=== PATIENT | male | born 1950 | race Caucasian/White ===

== ENCOUNTER → 2018-01-28 10:02 | Outpatient (CLI) | payer MEDICARE, SELFPAY ==
[2018-01-28 11:55] LABS: Prostate Specific Antigen 0.181 ng/mL (0.10-4.00)
== END ==
PROVIDERS: PCP Nurse Practitioner Family; Visit Provider Urology
DX: C61 Malignant neoplasm of prostate (principal)
CPT/HCPCS: 36415; 84153

== ENCOUNTER → 2018-05-06 12:27 | Outpatient (CLI) | payer MEDICARE, SELFPAY ==
[2018-05-06 13:33] LABS: Prostate Specific Antigen 0.159 ng/mL (0.10-4.00)
== END ==
PROVIDERS: PCP Nurse Practitioner Family; Visit Provider Urology
DX: C61 Malignant neoplasm of prostate (principal)
CPT/HCPCS: 36415; 84153

== ENCOUNTER 2018-06-12 10:57 | Day surgery (SDC) | payer MEDICARE, SELFPAY ==
[2018-05-14 11:43] VITALS: BMI 27.3
[2018-06-12] VITALS (8 sets, daily range): BP systolic 116–140; BP diastolic 78–91; PULSE 64–80; RESP 10–18; TEMP 36.3–37.3; O2SAT 89–100; BMI 26.5
--- NOTE | 2018-06-12 | PATH_ITS ---
[facility] Accession Number: [id number] . 01 Material submitted: . foot - SUB 4TH METATARSAL PLANTAR LESION . 01 Clinical history: . PLANTAR LESION SUB 4TH METATARSAL, SUTURE ON DISTAL ASPECT . 01 Diagnosis: Plantar Sub-Fourth Metatarsal, Excision: Consistent with traumatized angioleiomyoma. . Note: Verrucous epidermal changes are noted on the surface. Smooth muscle actin and CD34 immunostains performed support the above diagnosis. MRV/06/16/2018 . 01 Electronically signed: . Joelle Garcia MD, Dermatopathologist NPI- [id number] . 01 Gross description: . Received in formalin, labeled with the patient's name and plantar lesion sub fourth metatarsal, is an ovoid benitez-white skin excision oriented with a suture on the distal aspect. The suture is designated 12 o'clock. The specimen measures 1.6 cm 12 o'clock to 6 o'clock by 1.2 cm 3 o'clock to 9 o'clock, and is excised to a depth of 0.9 cm. A 1.1 x 0.7 cm nodular benitez-white lesion is present on the skin surface and is 0.1 cm from all resection margins. The specimen is inked as follows: 12 o'clock to 3 'clock-blue; 3 o'clock to 6 o'clock-yellow; 6 o'clock to 12 o'clock-green; deep-black. The specimen is serially sectioned to reveal a benitez-white to benitez-yellow cut surface, and entirely submitted as follows: A1-12 o'clock tip, shaved; A2-6 o'clock tip, shaved; A3-A4 - remainder of specimen, serially sectioned. (BRITTNY:[id number]) /MRV . 01 Pathologist provided ICD-10: D23.9 . 01 CPT . 078274, [id number], [id number] Performed at: [address] [id number] MD Arash Gay MD Phone: [phone]
--- NOTE | 2018-06-12 13:23 | PM.PREOP ---
Pre-operative Note Interval Note History & Physical reviewed/Exam performed by Physician: Yes Changes to H&P: No
--- NOTE | 2018-06-12 13:25 | P.OP_ITS ---
Operative Date/Time/Diagnoses Date of procedure: 06/12/18 Time of procedure: 13:24 Pre-op diagnosis: 1. Right foot mass, scar versus plantar wart 2. 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 Conservative efforts failed to alleviate symptoms. Surgical intervention requested. Surgeon: Radha Adan Click Yes if Unassisted: Yes Anesthesia Type: MAC +/- Operative Notes Closure Type: primary Specimen(s): other (Plantar mass of foot) Estimated Blood Loss (mL): 20 Blood products transfused: none Procedure in detail: The patient was brought to the operating room and placed on the operating table in the supine position tourniquet was placed about the thigh . Well padded appropriately aligned. After induction of sedation the foot was anesthetized using the above injectables, and the foot and ankle were prepped and draped in the usual aseptic manner. After check of anesthesia the incision was made on the plantar surface of the foot just proximal to the 3rd and 4th metatarsal heads where the mass was seen. A circumferential cut was made around it and then a wing on the slight angle was made distally and proximally. The ellipse was removed with the mass and the specimen was passed with a suture in the distal most aspect for margin understanding. It measured 1.4 x 1.0 x 0.8 cm. It was very thick and hyperkeratotic without any particular unusual discoloration or firmness. It was not fluid-filled nor did it have a particular singular stalk. The surrounding edges were undermined and approximation of the skin was viewed. The dog ears were removed and the area was irrigated with copious amounts of normal sterile saline. Temporarily, a mattress suture was placed in the central aspect of the skin for gentle elastic stretching. Next an incision was made on the plantar medial aspect of midfoot arch in the same manner, encompassing the prominent hyperkeratosis and then adding 2 small wings distally and proximally to allow for closure. This mass was much much smaller and not appear to be beyond what would be considered a keratoderma and showed no unusual signs including but not limited to what I have listed above. This measures 0.8 x 0.8 x 0.4 cm. This was not sent to pathology. As was performed with the other mass, the surrounding tissues were undermined gently and dog-ears of the skin were removed for appropriate closure. The area was irrigated with copious amounts normal sterile saline. The temporary suture was taken out of the 1st incision. With each a small number of Vicryl sutures were used for subcutaneous closure and then a mixture of simple and mattress suture techniques were used using 2 0 and 3 0 nylon for the skin on each. Vascular status remained intact throughout the procedure and it was important to continue to watch that he did not have excessive tightness on any portion of the skin. Following completion of the procedure the areas were dressed with a sterile lightly compressive dressing and he was placed in his stockinette and postsurgical boot and transferred to PACU with vital signs stable. Complications: none Condition: stable Disposition: PACU Plan for aftercare: Following a period of postoperative monitoring, the patient will be discharged home on written and oral postoperative instructions including keeping the dressing dry and intact, avoiding weight-bearing on the foot, icing and elevating the foot when seated home. These things were reviewed once again with his today. DVT prevention techniques have been reviewed. For the 1st postoperative visit the dressing will be changed and close to the 3rd postoperative week we will likely remove the sutures.
[2018-06-12] MEDS: CEFAZOLIN 2 GM/100 ML FROZ.PIGGY IV (13:30)
--- NOTE | 2018-06-12 13:58 | SUR.OPER ---
Supine on padded OR bed, head on pillow, arms secured on padded arm boards at <90 degrees abduction, legs uncrossed, safety belt at abdomen, tape over blanket over left lower leg.
[2018-06-12] MEDS: BUPIVACAINE 0.5% W/ EPI (PF) VIAL 10 ML INJ (14:04)
== END 2018-06-12 15:47 ==
LOC: OR 10:58
PROVIDERS: Family Provider Internal Medicine; PCP Nurse Practitioner Family; Visit Provider Podiatrist
PROC: (CPT 14040; principal; 2018-06-12 12:45)
DX: D23.71 Other benign neoplasm of skin of right lower limb, including hip (principal); L85.1 Acquired keratosis [keratoderma] palmaris et plantaris; F17.210 Nicotine dependence, cigarettes, uncomplicated
CPT/HCPCS: 14040 ×2; 88305; 88341; 88342; J0690; J2405; J2704

== ENCOUNTER → 2018-09-01 10:08 | Outpatient (CLI) | payer MEDICARE, SELFPAY ==
[2018-09-01 16:49] LABS: Prostate Specific Antigen < 0.064 ng/mL (0.10-4.00)
== END ==
PROVIDERS: PCP Nurse Practitioner Family; Visit Provider Urology
DX: C61 Malignant neoplasm of prostate (principal)
CPT/HCPCS: 36415; 84153

== ENCOUNTER → 2018-11-16 15:19 | Outpatient (ROUT) | payer MEDICARE, SELFPAY ==
[2018-11-16 15:37] LABS: Add Manual Diff / Slide Review NO; Basophils Absolute Auto 100 /uL (0-100); Basophils Percent Auto 1.8 % (0-2); Eosinophils Absolute Auto 100 /uL (0-450); Eosinophils Percent Auto 1.7 % (2-4); Hematocrit 42.8 % (41-53); Lymphocytes Absolute Auto 700 /uL (1100-4500); Lymphocytes Percent Auto 14.1 % (25-40); Mean Corpuscular HGB Conc 35.1 % (30-36); Mean Corpuscular Hemoglobin 35.3 PG (26-34); Mean Corpuscular Volume 100.6 fL (80-100); Monocytes Absolute Auto 400 /uL (0-900); Neutrophils Absolute Auto 3600 /uL (1500-7000); Neutrophils Percent Auto 74.4 % (50-75); Platelet Count 365 X10^3/uL (150-400); Red Blood Cell Count 4.26 X10^6/uL (4.5-5.9); Red Cell Distribution Width 13.3 % (11.6-14.8); White Blood Cell Count 4.8 X10^3/uL (4.5-11.0)
[2018-11-16 15:48] LABS: Alanine Aminotransferase 22 IU/L (21-72); Albumin 4.8 g/dL (3.5-5.0); Albumin Globulin Ratio 1.7 (1.0-2.8); Alkaline Phosphatase 106 U/L (38-126); Aspartate Aminotransferase 32 IU/L (17-59); Bilirubin Total 0.9 mg/dL (0.2-1.3); Blood Urea Nitrogen 9 mg/dL (9-20); Calcium 10.8 mg/dL (8.4-10.2); Carbon Dioxide 27 mmol/L (22-32); Chloride 91 mmol/L (98-107); Estimated Glomerular Filt Rate > 60.0 mL/min (>60); Globulin 2.9 g/dL (1.7-4.1); Glucose 98 mg/dL (80-110); HEMOLYSIS 19 (0-50); Potassium 4.7 mmol/L (3.4-5.1); Sodium 131 mmol/L (137-145); Total Protein 7.7 g/dL (6.3-8.2)
[2018-11-16 16:03] LABS: Free T4, Direct Thyroxine 0.95 ng/dL (0.78-2.19)
[2018-11-18 15:53] LABS: Triiodothyronine T3 Total 80 ng/dL (76-181)
[2018-11-21 17:30] LABS: Testosterone Free 1.3 pg/mL (30.0-135.0); Testosterone Total 22 ng/dL (250-1100)
== END ==
PROVIDERS: Visit Provider Internal Medicine
DX: F33.2 Major depressive disorder, recurrent severe without psychotic features (principal); R53.83 Other fatigue
CPT/HCPCS: 80053; 84402; 84403; 84439; 84443; 84480; 85025

== ENCOUNTER → 2019-04-21 10:54 | Outpatient (CLI) | payer MEDICARE, SELFPAY ==
[2019-04-21 13:13] LABS: Prostate Specific Antigen < 0.064 ng/mL (0.10-4.00)
== END ==
PROVIDERS: PCP Nurse Practitioner Family; Referring Provider Urology; Visit Provider Urology
DX: C61 Malignant neoplasm of prostate (principal)
CPT/HCPCS: 36415; 84153

== ENCOUNTER → 2019-09-09 13:09 | Outpatient (CLI) | payer MEDICARE, SELFPAY ==
--- NOTE | 2019-09-09 | DI.CT.S_ITS ---
PROCEDURE: CT HEAD/BRAIN WO CON INDICATIONS: Unspecified dementia without behavioral disturbanc TECHNIQUE: Noncontrast 4.5 mm thick angled axial sections acquired from the foramen magnum to the vertex, with coronal and sagittal reformats. For radiation dose reduction, the following was used: automated exposure control, adjustment of mA and/or kV according to patient size. COMPARISON: None. FINDINGS: Image quality: Excellent. CSF spaces: Basal cisterns are patent. No extra-axial fluid collections. The ventricles are symmetric in size and shape. Brain: No intracranial bleeds or masses. There is cerebral volume loss for age, with resultant ventricular and sulcal prominence. There are periventricular and deep white matter chronic small vessel ischemic changes. There is intracranial internal carotid artery and vertebral artery atherosclerosis. Skull and face: Calvarium and visualized facial bones appear intact, without suspicious lesions. Sinuses: Visualized sinuses and mastoids are clear. IMPRESSION: No acute intracranial disease process. Dictated by: Alaina Philippe MD, PhD on 09/09/2019 at 15:51 Approved by: Alaina Philippe MD, PhD on 09/09/2019 at 15:54
== END ==
PROVIDERS: PCP Internal Medicine; Referring Provider Internal Medicine; Visit Provider Internal Medicine
DX: F03.90 Unspecified dementia, unspecified severity, without behavioral disturbance, psychotic disturbance, mood disturbance, and anxiety (principal)
CPT/HCPCS: 70450

== ENCOUNTER → 2019-11-22 10:28 | Outpatient (CLI) | payer MEDICARE, SELFPAY | PROVIDERS: PCP Internal Medicine; Referring Provider Urology; Visit Provider Urology | DX: C61 Malignant neoplasm of prostate (principal) | CPT/HCPCS: 36415; 84153 ==

== ENCOUNTER → 2020-02-10 19:14 | Outpatient (ROUT) | payer MEDICARE, SELFPAY ==
[2020-02-10 19:46] LABS: Alanine Aminotransferase 17 IU/L (<50); Albumin 4.2 g/dL (3.5-5.0); Albumin Globulin Ratio 1.5 (1.0-2.8); Alkaline Phosphatase 97 U/L (38-126); Aspartate Aminotransferase 24 IU/L (17-59); BUN Creatinine Ratio 14.7 (6-22); Bilirubin Total 0.7 mg/dL (0.2-1.3); Blood Urea Nitrogen 10 mg/dL (9-20); Calcium 10.1 mg/dL (8.4-10.2); Carbon Dioxide 32 mmol/L (22-32); Chloride 96 mmol/L (98-107); Cholesterol 215 mg/dL (140-199); Estimated Glomerular Filt Rate > 60.0 mL/min (>60); Globulin 2.8 g/dL (1.7-4.1); Glucose 98 mg/dL (80-110); HDL Cholesterol 82 mg/dL (40-60); HEMOLYSIS < 15 (0-50); LDL Cholesterol Calculated 115 mg/dL (<100); Potassium 4.4 mmol/L (3.4-5.1); Sodium 132 mmol/L (137-145); Triglycerides 89 mg/dL (35-150)
== END ==
PROVIDERS: PCP Internal Medicine; Visit Provider Internal Medicine
DX: E78.5 Hyperlipidemia, unspecified (principal); I10 Essential (primary) hypertension
CPT/HCPCS: 80053; 80061

== ENCOUNTER → 2020-05-04 10:11 | Outpatient (CLI) | payer OTHER, SELFPAY ==
[2020-05-04 12:25] LABS: Prostate Specific Antigen < 0.064 ng/mL (0.10-4.00)
== END ==
PROVIDERS: PCP Internal Medicine; Referring Provider Radiology Radiation Oncology; Visit Provider Radiology Radiation Oncology
DX: Z85.46 Personal history of malignant neoplasm of prostate (principal)
CPT/HCPCS: 36415; 84153

== ENCOUNTER → 2020-05-12 09:02 | Outpatient (CLI) | payer MEDICARE, SELFPAY ==
[2020-05-12] MEDS: COVID-19 VACC, Ad26(JANSSEN)/PF 0.5 ML IM (09:20)
== END ==
PROVIDERS: PCP Internal Medicine; Visit Provider Internal Medicine
DX: Z23 Encounter for immunization (principal)
CPT/HCPCS: 0031A; 91303

== ENCOUNTER 2020-11-11 00:39 | Emergency (ER) | payer OTHER, SELFPAY ==
[2020-11-11 00:44] VITALS: BP 132/69; PULSE 60; RESP 16; TEMP 36.8; O2SAT 97
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
[2020-11-11 01:02] LABS: Add Manual Diff / Slide Review NO; Basophils Absolute Auto 0 /uL (0-100); Basophils Percent Auto 0.4 % (0-2); Eosinophils Absolute Auto 500 /uL (0-450); Eosinophils Percent Auto 7.4 % (2-4); Hematocrit 42.3 % (41-53); Hemoglobin 14.2 g/dL (13.5-17.5); Lymphocytes Absolute Auto 1600 /uL (1100-4500); Lymphocytes Percent Auto 23.3 % (25-40); Mean Corpuscular HGB Conc 33.6 % (30-36); Mean Corpuscular Hemoglobin 33.6 PG (26-34); Mean Corpuscular Volume 100.1 fL (80-100); Monocytes Absolute Auto 700 /uL (0-900); Monocytes Percent Auto 9.8 % (3-14); Neutrophils Absolute Auto 4200 /uL (1500-7000); Neutrophils Percent Auto 59.1 % (50-75); Platelet Count 295 X10^3/uL (150-400); Red Blood Cell Count 4.22 X10^6/uL (4.5-5.9); Red Cell Distribution Width 13.9 % (11.6-14.8)
[2020-11-11 01:08] LABS: Ethanol (ETOH) < 10 mg/dL
[2020-11-11 01:10] LABS: Alanine Aminotransferase 19 IU/L (<50); Albumin 4.3 g/dL (3.5-5.0); Albumin Globulin Ratio 1.4 (1.0-2.8); Alkaline Phosphatase 94 U/L (38-126); Aspartate Aminotransferase 27 IU/L (17-59); BUN Creatinine Ratio 19.1 (6-22); Bilirubin Total 0.5 mg/dL (0.2-1.3); Blood Urea Nitrogen 13 mg/dL (9-20); Calcium 9.5 mg/dL (8.4-10.2); Carbon Dioxide 27 mmol/L (22-32); Chloride 106 mmol/L (98-107); Creatine Kinase 104 U/L (55-170); Estimated Glomerular Filt Rate > 60.0 mL/min (>60); Glucose 94 mg/dL (80-110); HEMOLYSIS 27 (0-50); Potassium 4.2 mmol/L (3.4-5.1); Sodium 138 mmol/L (137-145); Total Protein 7.3 g/dL (6.3-8.2)
[2020-11-11 01:22] LABS: Troponin I < 0.012 ng/mL (0.01-0.034)
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
[2020-11-11 01:46] LABS: Creatine Kinase MB 6.66 ng/mL (<2.37)
[2020-11-11 01:55] LABS: CKMB % Relative Index 6.4 % (1.5-5.0)
[2020-11-11 03:23] LABS: Creatine Kinase 87 U/L (55-170)
[2020-11-11 03:36] LABS: Troponin I < 0.012 ng/mL (0.01-0.034)
[2020-11-11 07:55] VITALS: BP 126/80; PULSE 62; RESP 16; TEMP 36.2; O2SAT 97
== END 2020-11-11 07:56 | disposition home or self-care (01) ==
PROVIDERS: Emergency Provider Emergency Medicine; PCP Internal Medicine
DX: F03.91 Unspecified dementia, unspecified severity, with behavioral disturbance (principal); R07.9 Chest pain, unspecified
CPT/HCPCS: 80053; 80320; 81003; 82550; 82553; 84484; 85025; 93005; 99283; 99284

== ENCOUNTER → 2021-03-22 16:07 | Outpatient (CLI) | payer OTHER, SELFPAY ==
[2021-03-22 17:26] LABS: BUN Creatinine Ratio 13.7 (6-22); Blood Urea Nitrogen 10 mg/dL (9-20); Estimated Glomerular Filt Rate > 60.0 mL/min (>60)
== END ==
PROVIDERS: PCP Internal Medicine; Referring Provider Student in an Organized Health Care Education/Training Program; Visit Provider Student in an Organized Health Care Education/Training Program
DX: K59.09 Other constipation (principal); K62.5 Hemorrhage of anus and rectum
CPT/HCPCS: 36415; 82565; 84520

== ENCOUNTER → 2021-03-27 10:27 | Outpatient (CLI) | payer OTHER, SELFPAY ==
--- NOTE | 2021-03-27 | DI.CT.S_ITS ---
PROCEDURE: CT ABDOMEN PELVIS W CON INDICATIONS: CONSTIPATION,RECTAL BLEEDING TECHNIQUE: After the administration of oral and intravenous contrast, axial sections were acquired from the lung bases to the pubic symphysis. Coronal and sagittal reformats were performed. For radiation dose reduction, the following was used: automated exposure control, adjustment of mA and/or kV according to patient size. COMPARISON:[facility], CT, CT CHEST ABDOMEN PELVIS WITH CONTRAST, 07/04/2017, 13:19. FINDINGS: Image quality: Excellent. Lung bases: Unremarkable. Heart: No significant findings. ABDOMEN: Liver: Innumerable tiny cysts are again noted. There is a subcapsular hemangioma in the posterior segment of the right lobe, unchanged.. Gallbladder: Unremarkable. Biliary ducts: Unremarkable. Pancreas: Unremarkable. Spleen: Unremarkable. Adrenal Glands: Unremarkable. Kidneys and Ureters: Unremarkable. Stomach and Bowel: No abnormally dilated bowel loops. Moderately large fecal load. Mild rectal fecal impaction. Mild distal rectal wall thickening, in relative proximity to the prostate implant seeds. Peritoneum: No abnormal intraperitoneal fluid. No free air. Ventral Wall: No hernia. Abdominal Nodes: No retroperitoneal or mesenteric adenopathy by size criteria. Vessels: Mild ectasia without aneurysm of the aortoiliac system. Extensive vascular calcifications. PELVIS: Pelvic Organs: Interval placement of prostate implant seeds. Bladder: Unremarkable. Pelvic Nodes: No enlarged lymph nodes. Miscellaneous: Small, fat containing left inguinal hernia. Bones: Lumbar degenerative change. No lytic or blastic bony lesions. No compression fractures. Unilateral left L5 pars defect. Nonspecific lucencies in the iliac bones bilaterally may be secondary to diffuse mineral loss. No obvious bony metastatic lesions. IMPRESSION: 1. No evidence of acute abdominal process. 2. Moderately large fecal load with mild rectal fecal impaction. 3. Mild distal rectal wall thickening, in relative close proximity to the prostate implant seeds. This is of uncertain etiology. Consider direct visualization if this has not occurred in the recent past. 4. No metastatic disease identified. 5. Small left inguinal hernia containing fat. Dictated by: Estiven Crowley M.D. on 03/27/2021 at 14:14 Approved by: Estiven Crowley M.D. on 03/27/2021 at 14:22
== END ==
PROVIDERS: PCP Internal Medicine; Referring Provider Student in an Organized Health Care Education/Training Program; Visit Provider Student in an Organized Health Care Education/Training Program
DX: K62.5 Hemorrhage of anus and rectum (principal); K59.09 Other constipation; K59.00 Constipation, unspecified; K40.90 Unilateral inguinal hernia, without obstruction or gangrene, not specified as recurrent
CPT/HCPCS: 74177

== ENCOUNTER → 2021-06-15 10:50 | Outpatient (CLI) | payer OTHER, SELFPAY ==
[2021-06-15 12:13] LABS: COVID19 -Nasal RAPID Negative (Negative)
== END ==
PROVIDERS: PCP Internal Medicine; Visit Provider Family Medicine Sleep Medicine
DX: Z20.822 Contact with and (suspected) exposure to COVID-19 (principal)
CPT/HCPCS: 87635; C9803

== ENCOUNTER 2021-06-18 09:43 | Day surgery (SDC) | payer OTHER, SELFPAY ==
[2021-06-18] VITALS (8 sets, daily range): BP systolic 92–177; BP diastolic 62–88; PULSE 47–66; RESP 12–21; TEMP 36.2–36.6; O2SAT 95–99; BMI 24.3
--- NOTE | 2021-06-18 10:36 | SUR.PREOP ---
Pt brought saline fenema (fleets from home) . Box intact. Equate [id number] saline enema. 1st dose given at 1020 with patient lying on left side. Attends placed. Pt with difficulty getting up to commode so resting in bed now with attends on. Next dose in 30 min.
[2021-06-18] MEDS: SODIUM CHLORIDE 0.9% 1,000 ML 84 ML IV (11:00)
[2021-06-18] MEDS: MIDAZOLAM 2 MG/2 ML VIAL 1 MG IV (11:15)
--- NOTE | 2021-06-18 11:15 | PM.HP.1 ---
History of Present Illness History of Present Illness Date Patient Seen: 06/18/21 Time Patient Seen: 11:15 Chief complaint: FLEX SIG Narrative: I reviewed the recent note from Dr. Del Rio. No significant changes. Patient has had external beam radiation for his prostate. Patient History Medical History Dementia Elevated PSA Hearing impaired HTN (hypertension) Impaired vision Memory change PTSD (post-traumatic stress disorder) Surgical History History of orchiectomy, unilateral (~12/2015) History of vasectomy Hx of hand surgery Hx of right inguinal hernia repair (~12/2015) Family & Social History Social History: household members spouse Tobacco & Substance use: Smoking Status Current every day smoker alcohol intake current alcohol intake frequency 3 or more drinks per day Substance Use Type does not use Meds Home Medications and Allergies Home Medications Medication Instructions Recorded Confirmed Type cholecalciferol (vitamin D3) 25 1,000 unit PO DAILY #0 05/23/16 06/18/21 History mcg (1,000 unit) capsule (Vitamin D3) multivitamin (Multiple Vitamins) 1 tab PO QDAY #0 05/23/16 06/18/21 History acetaminophen 650 mg 650 mg PO Q8HP PRN #0 06/24/16 06/18/21 History tablet,extended release lisinopril 10 mg tablet 10 mg PO QDAY #30 tab 03/12/17 06/18/21 Rx paroxetine HCl 20 mg tablet 20 mg PO DAILY 06/12/18 06/18/21 History quetiapine 25 mg tablet 25 mg PO BID 06/18/21 06/18/21 History Allergies Allergy/AdvReac Type Severity Reaction Status Date / Time No Known Drug Allergies Allergy Verified 06/18/21 10:25 Exam Vital Signs (past 8 hours): - 06/18/21 10:38 Temperature 97.2 F L Pulse Rate 62 Respiratory Rate 16 Blood Pressure 116/83 Pulse Oximetry 98 Oxygen Delivery Method Room Air Const General: comfortable HENMT Head: normocephalic Ears: external ears normal Nose: external nose normal Face and sinus: normal facial exam Mouth: oral mucosae normal Eyes General: appearance normal, both eyes and all related structures Neck Neck: normal visual inspection Chest Chest: normal inspection of the chest Resp Effort & Inspection: normal respiratory effort Cardio Rate: regular rate GI Inspection: normal to inspection Skin General: no rashes or lesions noted and No jaundice Neuro General: patient alert and moves all extremities Cognition: normal cognition Speech: speech normal Extrem General: no pedal edema Psych Appearance: grossly normal Assessment & Plan Assessment & Plan narrative: 71-year-old male with a history of prostate cancer status post external beam radiation. He has been experiencing constipation rectal bleeding and had a CT that demonstrated some mild rectal wall thickening and a probable mild fecal impaction. Flexible sigmoidoscopy is pursued today. Time Spent With Patient Critical Care time: I spent a total of [] minutes of critical care time on this patient's care today; this time is exclusive of procedural time.
--- NOTE | 2021-06-18 11:17 | PM.PREOP ---
Pre-operative Note COVID-19 COVID-19 status: Negative Result date/Date tested (Pos, Neg/Pending): 06/15/21 Criteria for continued procedure: Possibility delay results in more complex future surgery or treatment Interval Note History & Physical reviewed/Exam performed by Physician: Yes Changes to H&P: Yes ASA Class (for procedural sedation): II
--- NOTE | 2021-06-18 11:22 | SUR.PREOP ---
1120 2nd fleets enema given with patient lying on left side. Pt pre-medicated with 1mg Versed after discussion by Dr Miller and Gary CUBA with and evaluation of patient. Pt with sever dementia. unable to follow commands and became combative with IV start and severe difficulty with enema#1. at bedsdie. Pt on monitor.
--- NOTE | 2021-06-18 11:58 | PM.OP.COLON ---
Operative Date/Time/Diagnoses Date of procedure: 06/18/21 Time of procedure: 11:58 Pre-op diagnosis: Rectal bleeding abnormal imaging Post-op diagnosis: same Procedure & Clinicians Study performed: Flexible sigmoidoscopy Same procedure as scheduled: Yes Indications: Rectal bleeding abnormal imaging Surgeon: Hai Miller Procedure Notes SCOAP/Timeout: Done Procedure in detail: After the risks and benefits were explained, written and verbal informed consent was obtained via the patient's . The patient was brought into the procedure room and placed into the left lateral decubitus position. Please see nurse etiology teacher note for sedation details. Digital rectal examination was accomplished. Mild internal hemorrhoids were noted. The scope was introduced into the patient and advanced under direct visualization to descending colon. We encountered solid stool at this location yellow in color. The scope was slowly withdrawn to carefully examine the mucosa for any defects or lesions. Comprehensive imaging was accomplished throughout the rectum including the dentate line. The colon was decompressed, the scope was then removed from the patient who tolerated the procedure well. Bowel prep fair (despite 2 enemas preprocedure there was still a moderate amount of brown solid stool being passed after sedation was initiated). There were a couple of moderate fecaliths in the rectosigmoid that we were fairly easily able to navigate around up into the descending colon. Adult colonoscope Scope withdrawal time: Not applicable Sedation minutes: 8 Specimen(s): none sent Complications: none Impression: Mild internal grade 1 hemorrhoids were noted. No mass lesions detected. The scope was introduced into the rectum and ultimately advanced into the descending colon (approximately 40 cm from the anal verge). There was some solid brown stool in a couple of locations but we were able to navigate around this up into the descending as described above. I did not appreciate any mass lesions no evidence of inflammatory bowel disease. In the rectum there were scattered telangiectasia consistent with radiation induced telangiectasia. A few of these were mildly oozing red blood likely a consequence of some trauma from the nurse applied enemas preprocedure. Endoscopic diagnosis 1. Grade 1 hemorrhoids 2. Radiation induced rectal telangiectasia Post-procedure Plan for aftercare: 1. Insert 20 mL of a 10% sucralfate suspension enema twice daily x6 weeks. 2. Follow-up GI clinic to review response. 3. Should symptoms persist and/or bleeding accelerate, repeat flexible sigmoidoscopy for APC of any dominant telangiectasia would be appropriate. Disposition: PACU
--- NOTE | 2021-06-18 12:11 | SUR.PHASEI ---
at bedside, pt with eyes closed VSS.
--- NOTE | 2021-06-18 13:04 | SUR.PHASEII ---
1230 Pt awaoke in PACU, at bedside, pt with no pain, incontinent of urine. Pt transfered to room 5. This nurse and MORAIMA Jacobs assisted pt to dress pt intermittently combative, resisting help. Pt eventually dressed and left unit in stable condition. Per pt's treatment for home per Dr. Mliler may be too much for her to do. Consult to [facility] ordered.
== END 2021-06-18 12:45 | disposition home or self-care (01) ==
PROVIDERS: PCP Internal Medicine; Referring Provider Internal Medicine Gastroenterology; Visit Provider Internal Medicine Gastroenterology
PROC: 0DJD8ZZ Inspection of Lower Intestinal Tract, Via Natural or Artificial Opening Endoscopic (ICD-10-PCS; CPT 45378; principal; 2021-06-18 11:00)
DX: K62.5 Hemorrhage of anus and rectum (principal); K64.0 First degree hemorrhoids; K62.7 Radiation proctitis; F17.210 Nicotine dependence, cigarettes, uncomplicated
CPT/HCPCS: 45330; J2250; J2704